=== PATIENT | female | born 1985 | race Two or more races ===

== ENCOUNTER 2021-03-22 11:31 | Outpatient (CLI) | payer OTHER ==
[~2021-03-22 11:31] MED LIST: ZESTRIL2.5 MG PO
== END 2021-03-22 11:35 | disposition home or self-care (01) ==
LOC: LAB 11:31
PROVIDERS: ATTEND Colon & Rectal Surgery
DX: K64.2 Third degree hemorrhoids (principal); K92.1 Melena; Z03.818 Encounter for observation for suspected exposure to other biological agents ruled out

== ENCOUNTER 2021-03-24 07:57 | Day surgery (SDC) | payer OTHER | END 2021-03-24 16:20 | disposition home or self-care (01) | LOC: CIR.AMB 07:57 | PROVIDERS: ATTEND Colon & Rectal Surgery | DX: K64.8 Other hemorrhoids (principal); Z86.16 Personal history of COVID-19; J45.909 Unspecified asthma, uncomplicated; I10 Essential (primary) hypertension; J32.9 Chronic sinusitis, unspecified ==